=== PATIENT | male | born 1980 | race Caucasian/White ===

== ENCOUNTER 2017-10-02 21:38 | Emergency (ER) | payer OTHER ==
[2017-10-02] MEDS ORDERED: Albuterol 0.5% CONC NEB.SOL* 5 MG/ML 20 ml BOT INH ONE (21:42)
[2017-10-02] MEDS ORDERED: methylPREDNISolone SOD 40 MG* 1 ML VIAL IV ONE (21:42)
[2017-10-02] MEDS ORDERED: Magnesium Sulfate 2 GM IV* 2 GM/50 ML BAG IVPB ONE (21:42)
[2017-10-02] MEDS ORDERED: Albuterol 0.5% CONC NEB.SOL* 5 MG/ML 20 ml BOT ONE ×2 (21:44→21:45)
[2017-10-02] MEDS ORDERED: Magnesium Sulfate IV 2 GM in NS 100 ML (Pharmacy Admixed) IV ONE (21:45)
--- NOTE | 2017-10-02 21:47 | ED ---
Respiratory - HPI Summary HPI Summary: Pt is a 36 y/o M p/w respiratory issues onset a few days ago. Assoc. Sx: Dyspnea , cough, sputum (colored). PMHx: Asthma. Per EMS, Pt received 2 nebulizer treatments but was unable to "suck" treatments in. He had 2 previously and he got a 3rd on the way to ED. - History of Current Complaint Stated Complaint: RESP DISTRESS Time Seen by Provider: 10/02/17 21:42 Hx Obtained From: Patient, EMS Onset/Duration: Sudden Onset, Lasting Days, Still Present, Worse Since - paz Character: Cough (Productive), Dyspnea at Rest Sputum Amount: Moderate - colored Alleviating Factor(s): Nothing Associated Signs and Symptoms: SOB, Dyspnea - Allergy/Home Medications Allergies/Adverse Reactions: Allergies Allergy/AdvReac Type Severity Reaction Status Date / Time No Known Allergies Allergy Verified 10/02/17 22:05 Home Medications: Home Medications Advair HFA 115/21 (NF) 2 puff BID 10/02/17 [History Confirmed 10/02/17] Albuterol HFA INHALER* 2 puff Q6H PRN 10/02/17 [History Confirmed 10/02/17] PMH/Surg Hx/FS Hx/Imm Hx Previously Healthy: No Respiratory History: Reports: Hx Asthma Sensory History: Denies: Hx Legally Blind Review of Systems Negative: Fever Positive: Shortness Of Breath, Cough, Other - sputum - colored All Other Systems Reviewed And Are Negative: Yes Physical Exam - Summary Physical Exam Summary: Appearance: Well-appearing, Well-nourished, lying in bed comfortably Skin: Warm, dry, no obvious rash Eyes: sclera anicteric, no conjunctival pallor ENT: mucous membranes moist, pharynx appears normal Neck: Supple, nontender Respiratory: Clear to auscultation, diminished airation, respiratory distress Cardiovascular: Normal S1, S2. No murmurs. Normal distal pulses in tibial and radial bilaterally. Abdomen: Soft, nontender, normal active bowel sounds present, Belly bleeding. Musculoskeletal: Normal, Strength/ROM Intact Neurological: A&Ox3, awake and alert, mentation is normal, speech is fluent and appropriate Psychiatric: affect is normal, does not appear anxious or depressed Triage Information Reviewed: Yes Vital Signs Reviewed: Yes Diagnostics - Laboratory Result Diagrams: 10/02/17 22:26 10/02/17 22:26 Lab Statement: Any lab studies that have been ordered have been reviewed, and results considered in the medical decision making process. - Radiology CXR Xray Interpretation: No Acute Changes Radiology Interpretation Completed By: Radiologist - Report has been reviewed by provider. Re-Evaluation - Re-Evaluation First Eval Re-Evaluation Time: 00:15 Change: Improved - The patient appears much more comfortable with his breathing. Aeration is markedly improved, and there is no further wheezing. He only complains of some mild pain in the left lateral chest, certainly due to soreness from his work of breathing earlier. At this point he is stable for discharge. Disposition - Diagnoses Provider Diagnoses: Asthma exacerbation - Critical Care Time Critical Care Time: 30-74 min - Pt arrived with moderate to severe distress, required continuous neb, IV steroids and magnesium, frequent clinical re- evaluations. Pt improved during the course of treatment. Discharge - Sign-Out/Discharge Documenting (check all that apply): Patient Departure - Discharge Plan Condition: Good Disposition: LAW ENFORCEMENT/COURT Prescriptions: predniSONE [Prednisone 20 MG TAB] 40 mg PO DAILY #10 tablet Patient Education Materials: Asthma (ED), How to Stop Smoking (ED) Referrals: Kam BURT,Barak Heck [Primary Care Provider] -
[2017-10-02 22:40] LABS: ABS Basophils 0 10^3/ul (0-0.2); ABS Eosinophils 0 10^3/ul (0-0.6); ABS Lymphocytes 1.3 10^3/ul (1.0-4.8); ABS Monocytes 0.3 10^3/ul (0-0.8); ABS Neutrophils 8.1 10^3/ul (1.5-7.7); ABS Nucleated RBC 0 10^3/ul; Eosinophil % 0 % (0-6); Hematocrit 44 % (42-52); Lymphocyte % 13.3 % (25-47); Mean Corpuscular HGB Conc 36 g/dl (31-36); Mean Corpuscular Hemoglobin 31 pg (27-31); Mean Corpuscular Volume 86 fL (80-94); Mean Platelet Volume 7.5 um3 (7.4-10.4); Nucleated Red Blood Cells % 0.1; Platelet Count 244 10^3/ul (150-450); Red Blood Count 5.18 10^6/ul (4.00-5.40); Red Cell Distribution Width 13 % (10.5-15); White Blood Count 9.7 10^3/ul (3.5-10.8)
[2017-10-02 22:56] LABS: EGFR Non-African American 107.6 (>60)
[2017-10-03 00:43] VITALS: BP 139/84
--- NOTE | 2017-10-03 07:43 | RAD ---
Indication: Dyspnea. Single frontal view of the chest performed at 2157 hours was reviewed. No prior study is available for comparison. No mediastinal shift is noted. Heart is of normal size and configuration. Lung larose appear clear. IMPRESSION: NO ACTIVE CARDIOPULMONARY DISEASE IS NOTED.
== END 2017-10-03 00:44 ==
LOC: ED 21:38
DX: J45.901 Unspecified asthma with (acute) exacerbation (principal)
CPT/HCPCS: 36415; 71045; 80053; 82803; 85025; 96365; 96375; 99283; J2920; J3475; J7611